=== PATIENT | male | born 1990 | race Caucasian/White ===

== ENCOUNTER 2022-08-31 20:47 | Emergency (ER) | payer SELFPAY ==
[~2022-08-31] VITALS: Ht 177.8 cm; Wt 68.0 kg
[2022-08-31 21:00] VITALS: BP 144/77
--- NOTE | 2022-08-31 21:03 | NUR ---
TO LOBBY A/W BED AMBULATORY
--- NOTE | 2022-08-31 23:30 | NUR ---
PATIENT LEFT WITHOUT BEING SEEN BY DR. RÍOS. NO FURTHER CARE PROVIDED FOR PATIENT.
== END 2022-08-31 22:30 | disposition left against medical advice (07) ==
LOC: MED 20:47
DX: R51.9 Headache, unspecified (principal); Z53.21 Procedure and treatment not carried out due to patient leaving prior to being seen by health care provider
CPT/HCPCS: 99281